=== PATIENT | female | born 1960 | race Caucasian/White ===

== ENCOUNTER → 2024-04-09 | Outpatient (CLI) | payer MEDICARE, SELFPAY ==
--- NOTE | 2024-04-09 16:06 | XR_ITS ---
Examination: Duplex scan of the lower extremity, unilateral right complete Date and time of exam: April 09, 2024 1620 hrs. Indications: Right calf and Achilles swelling and pain 10 days after falling, breast cancer diagnosis Technique: Duplex scan of the extremity veins using B-mode/grayscale imaging and Doppler spectral analysis and color flow Attention is directed to internal echogenicity, compression and augmentation involving these veins, color flow assessment, spectral analysis Findings: Major deep venous structures in the extremity demonstrate normal course and caliber. There is no evidence of deep vein thrombosis. Normal color flow and spectral analysis Impression: Negative for DVT.. As clinically warranted, MRI ankle follow-up would best assess for Achilles damage
== END | disposition home or self-care (01) ==
LOC: CDIM 16:04
PROVIDERS: PCP Internal Medicine; Referring Provider Internal Medicine; Visit Provider Internal Medicine
DX: M79.89 Other specified soft tissue disorders (principal)
CPT/HCPCS: 93971

== ENCOUNTER → 2024-04-26 | Outpatient (CLI) | payer OTHER, SELFPAY ==
[2024-04-26 15:02] LABS: Basophils # (Auto) 0.1 Thou/mm3 (0.0-0.2); Basophils % (Auto) 0 % (0-2.5); Eosinophils # (Auto) 0.1 Thou/mm3 (0.0-0.5); Eosinophils % (Auto) 0 % (0-10); Hematocrit 42.5 % (36.0-46.0); Hemoglobin 14.6 g/dL (12.0-16.0); Immature Granulocytes % (Auto) 0 % (0-0); Immature Granulocytes Auto 0.03 Thou/mm3 (0.00-0.00); Lymphocytes # (Auto) 2.1 Thou/mm3 (1.0-4.8); Lymphocytes % (Auto) 19 % (10-50); Mean Corpuscular HGB Conc 34.4 g/dl (31.0-37.0); Mean Corpuscular Volume 87 fL (80-100); Monocytes # (Auto) 0.9 Thou/mm3 (0.0-0.8); Monocytes % (Auto) 8 % (0-12); Neutrophils # (Auto) 8.2 Thou/mm3 (1.8-7.7); Neutrophils % (Auto) 72 % (37-80); Nucleated Red Blood Cell % 0 /100 WBC (0); Platelet Count 257 Thou/mm3 (140-440); RDW Standard Deviation 41.6 fL (36.4-46.3); Red Blood Count 4.86 Miln/mm3 (4.00-5.20); White Blood Count 11.3 Thou/mm3 (3.6-11.0)
[2024-04-27 17:25] LABS: Folate 21.68 ng/mL (>5.38); Vitamin B12 411 pg/mL (211-911)
[2024-04-28 03:15] LABS: Iron 125 mcg/dL (50-170); Percent Iron Saturation 34 % (20-55); Total Iron Binding Capacity 358 mcg/dL (250-425); Unsaturated Iron Binding 233 (225-295)
[2024-05-05 06:31] LABS: Zinc, Plasma* 85 mcg/dL (60-130)
== END | disposition home or self-care (01) ==
PROVIDERS: PCP Internal Medicine
DX: D50.9 Iron deficiency anemia, unspecified (principal); E44.0 Moderate protein-calorie malnutrition; R53.82 Chronic fatigue, unspecified
CPT/HCPCS: 36415; 82607; 82746; 83540; 83550; 84630; 85025

== ENCOUNTER → 2024-05-18 | Outpatient (CLI) | payer OTHER, SELFPAY ==
--- NOTE | 2024-05-18 16:46 | XR_ITS ---
Examination: Fingers, right hand third digit 3 views Technique: AP, oblique, lateral views right hand third digit 3 views. 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
--- NOTE | 2024-05-18 16:46 | XR_ITS ---
Examination: Hand, right 3 views Technique: Hand AP, oblique, lateral 3 views Date and time of exam: May 18, 2024 1710 hours INDICATIONS: Injury to the hand 2021 with weakness and pain FINDINGS: Healed fracture proximal phalanx fifth digit Severe osteopenia No acute fracture Osteoarthritis distal interphalangeal joints second through fifth digits most prominent third and second digits IMPRESSION: No acute fracture Osteoarthritis as above
[2024-05-18 17:49] LABS: Sed Rate (ESR) 6 mm/hr (0-30)
[2024-05-18 18:24] LABS: C-Reactive Protein < 0.4 mg/dL (0.0-0.9)
[2024-05-18 22:05] LABS: RA Screen Negative (Negative)
[2024-05-26 06:56] LABS: ANA Screen, IFA NEGATIVE (NEGATIVE); CCP Antibody (IgG)* <16 Units
== END | disposition home or self-care (01) ==
LOC: CDIM 15:57 → COPL 16:29
PROVIDERS: Referring Provider Internal Medicine; Visit Provider Radiology Diagnostic Radiology
DX: M19.041 Primary osteoarthritis, right hand (principal); M19.90 Unspecified osteoarthritis, unspecified site
CPT/HCPCS: 36415; 73130; 73140; 85652; 86038; 86140; 86200; 86430

== ENCOUNTER 2024-07-02 15:21 | Emergency (ER) | payer OTHER, SELFPAY ==
[2024-07-02 16:07] VITALS: BP 126/81; PULSE 68; RESP 18; TEMP 37.1; O2SAT 98; BMI 23.7
--- NOTE | 2024-07-02 16:10 | EKG_ITS ---
[facility] Test Date: 2024-07-02 Pat Name: RASHAUN VÁZQUEZ Department: Room: - Gender: Female Director Statistical Programming: : 1960 Requested By: Vitaly Foster Order Number: [id number] Reading MD: Vitaly Foster Measurements Intervals [place] Rate: 59 P: 58 MS: 189 QRS: 41 QRSD: 86 T: 70 QT: 398 QTc: 395 Interpretive Statements SINUS BRADYCARDIA Compared to ECG 10/30/2023 18:18:32 Sinus rhythm no longer present T-wave abnormality no longer present /store/S0/[id number]/ecg/[id number].pdf
--- NOTE | 2024-07-02 16:11 | EDRME_ITS ---
Rapid Medical Screening Exam [facility] Arrival date/time: 07/02/24 15:21 CC: Low blood pressure lightheadedness and dizziness HPI ongoing for the last week and a half, has had a history of similar episode last year and was told that it is orthostatic hypotension. Patient has a past medical history of aortic aneurysm and a leaky valve . Dr. Pagan is her therapy coordinator and Dr. Garcia is her primary care provider. Patient is awake alert oriented with no specific complaints while sitting down. Patient denies full syncope, or fall in the last week and a half. Chief Complaint: Syncope / Near Syncope Time Seen by Provider: 07/02/24 16:08 Vital signs: Vital Signs Temperature 98.7 F 07/02/24 16:07 Pulse Rate 68 07/02/24 16:07 Respiratory Rate 18 07/02/24 16:07 Blood Pressure 126/81 07/02/24 16:07 Pulse Oximetry (%) 98 07/02/24 16:07 Oxygen Delivery Method Room Air 07/02/24 16:07
[2024-07-02 16:55] LABS: Collection Type, Urine Clean Catch; Squamous Epithelial Cell,Urine 0 /hpf (0-5)
[2024-07-02 17:07] LABS: Bacteria,Urine Rare; Bilirubin,Urine Negative (Negative); Blood,Urine Negative (Negative); Clarity,Urine Clear (Clear/Hazy); Color,Urine Yellow (Lt Yel-Yel); Glucose, Urine Negative (Negative); Ketones,Urine Negative (Negative); Leukocyte Esterase,Urine Negative (Negative); Nitrite,Urine Negative (Negative); Protein,Urine Negative (Neg - Trace); RBC,Urine 1 /hpf (0-3); Specific Gravity,Urine 1.027 (1.001-1.035); Urobilinogen,Urine Negative mg/dL (0.0-1.0); WBC,Urine 1 /hpf (0-5)
[2024-07-02 17:19] LABS: Amphetamine/Methamp Scrn,U Negative (Negative); Barbiturate Screen,Urine Negative (Negative); Benzodiazepines Screen,Urine Positive (Negative); Benzoylecgonine Screen, Ur Negative (Negative); Fentanyl Screen,Urine Negative (Negative); Opiate Screen,Urine Positive (Negative); THC Screen,Urine Positive (Negative)
[2024-07-02 17:21] LABS: Basophils # (Auto) 0.1 Thou/mm3 (0.0-0.2); Basophils % (Auto) 1 % (0-2.5); Eosinophils # (Auto) 0.2 Thou/mm3 (0.0-0.5); Eosinophils % (Auto) 2 % (0-10); Hematocrit 40.3 % (36.0-46.0); Hemoglobin 13.8 g/dL (12.0-16.0); Immature Granulocytes % (Auto) 0 % (0-0); Immature Granulocytes Auto 0.03 Thou/mm3 (0.00-0.00); Lymphocytes # (Auto) 2.6 Thou/mm3 (1.0-4.8); Lymphocytes % (Auto) 27 % (10-50); Mean Corpuscular HGB Conc 34.2 g/dl (31.0-37.0); Mean Corpuscular Hemoglobin 29.9 pg (25.0-35.0); Mean Corpuscular Volume 87 fL (80-100); Monocytes # (Auto) 0.7 Thou/mm3 (0.0-0.8); Monocytes % (Auto) 8 % (0-12); Neutrophils # (Auto) 6.1 Thou/mm3 (1.8-7.7); Neutrophils % (Auto) 62 % (37-80); Nucleated Red Blood Cell % 0 /100 WBC (0); Platelet Count 285 Thou/mm3 (140-440); Red Blood Count 4.61 Miln/mm3 (4.00-5.20); White Blood Count 9.8 Thou/mm3 (3.6-11.0)
[2024-07-02 17:45] LABS: INR 0.9 (0.9-1.3); Partial Thromboplastin Time 24.7 Seconds (22.0-36.0); Prothrombin Time 10.3 Seconds (9.0-12.2)
[2024-07-02 17:54] LABS: B-Type Natriuretic Peptide 28 pg/mL (0-100)
[2024-07-02 17:58] LABS: Alanine Aminotransferase 13 U/L (10-49); Albumin, Serum 4.4 gm/dL (3.4-4.8); Alkaline Phosphatase 80 U/L (46-116); Anion Gap 9 (7-16); Aspartate Amino Transferase 17 U/L (0-34); BUN/Creatinine Ratio 14 Ratio (12-20); Bilirubin,Total 0.4 mg/dL (0.3-1.2); Blood Urea Nitrogen 13 mg/dL (9-23); Calcium 9.1 mg/dL (8.3-10.6); Calcium (Corrected) 9.1 mg/dL (8.5-10.1); Carbon Dioxide 27.4 mMol/L (20.0-31.0); Chloride 105 mMol/L (98-107); Creatinine (Component) 0.9 mg/dL (0.6-1.3); Estimated Creatinine Clearance 52.9 mL/min (>60); Globulin 2.2 gm/dL (2.3-3.5); Glucose 84 mg/dL (74-106); LDH (Lactate Dehydrogenase) 168 U/L (120-246); Magnesium 1.9 mg/dL (1.6-2.6); Osmolality,Calculated 280 (275-295); Sodium 141 mMol/L (136-145); Total Protein 6.6 gm/dL (5.7-8.2); Troponin I < 0.002 ng/mL (0.0-0.045); eGFR > 60 See Note
--- NOTE | 2024-07-02 19:20 | EDNOTE_ITS ---
ED Syncope RME/HPI General Chief Complaint: Syncope / Near Syncope Stated Complaint: LOW BP, NEAR SYNCOPE, DIZZINESS Time Seen by Provider: 07/02/24 16:08 Arrival date/time: 07/02/24 15:21 RME / HPI RME / HPI narrative: 63-year-old female patient with significant history of orthostatic hypotension came in with low blood pressure lightheadedness and dizziness HPI ongoing for the last week and a half, has had a history of similar episode last year and was told that it is orthostatic hypotension. Patient has a past medical history of aortic aneurysm and a leaky valve . Dr. Pagan is her funeral driver and Dr. Garcia is her primary care provider. Patient is awake alert oriented with no specific complaints while sitting down. Patient denies full syncope, or fall in the last week and a half. Related Data Home Medications ?Medication ?Instructions ?Recorded ?Confirmed alprazolam 1 mg tablet (Xanax) 1 mg PO BID PRN Anxiety #0 tabs 08/08/15 12/08/23 Held on 12/08/23. Instructions: Resume on 12/09/23. venlafaxine 150 mg 300 mg PO QDAY ##0 08/08/15 12/08/23 capsule,extended release 24 hr (Effexor XR) Held on 12/08/23. Instructions: Resume on 12/09/23. gabapentin 100 mg capsule 200 mg PO TID 03/24/1812/07 Held on 12/08/23. Instructions: Resume on 12/09/23. hydrocodone 7.5 mg-acetaminophen 1 tab PO BID PRN Pain 03/24/18 12/08/23 325 mg tablet Held on 12/08/23. Instructions: Resume on 12/09/23. levothyroxine 25 mcg tablet 25 mcg PO QDAY 03/24/18 dextroamphetamine-amphetamine 10 10 mg PO BID 10/29/22 12/08/23 mg tablet Held on 12/08/23. Instructions: Resume on 12/09/23. sucralfate 1 gram tablet 1 g PO QDAY 10/29/22 4 trazodone 150 mg tablet 150 mg PO HS 10/29/22 Held on 12/08/23. Instructions: Resume on 12/09/23. linaclotide 145 mcg capsule 145 mcg PO QDAY 12/08/23 0 12/08/23 (Linzess) tizanidine 4 mg tablet 4 mg PO QDAY 12/08/23 Held on 12/08/23. Instructions: Resume on 12/09/23. Previous Rx's ?Medication ?Instructions ?Recorded pantoprazole 40 mg tablet,delayed 40 mg PO QDAY #30 ta bs 10/30/23 release (Protonix) Allergies Allergy/AdvReac Type Severity Reaction Status Date / Time morphine Allergy Intermediate Rash Verified 12/08/23 13:34 Review of Systems Review of Systems Narrative Review of Systems: Review of system reviewed and within normal limits except mentioned in HPI ED Exam Narrative Physical exam: VITAL SIGNS: Reviewed. GENERAL APPEARANCE: Alert and interactive, follows commands, no acute distress, HEAD AND FACE: Non-traumatic. ENT: PERRL, pink conjunctivitis, eyelid no trauma, Mucous membrane moist. NECK: Supple, nontender, no nuchal rigidity. CHEST: No tenderness, no crepitus, no paradoxical movement, no retractions. LUNGS: Clear, well ventilated, symmetric, no rales, no wheezing, no ronchi, no stridor, good breath sounds bilaterally. HEART: Regular rate, regular rhythm, no murmur, no gallops. ABDOMEN: Soft, positive bowel sounds, nondistended, no guarding, nontender, no rebound, no masses, RECTAL: Deferred. GENITAL: Deferred. NEUROLOGICAL: Gross motor function intact sensory function intact, Appropriate for age. MUSCULOSKELETAL: low back nontender, full range of motion. EXTREMITIES: Nontender, full range of motion. SKIN: Color pink, dry, no rash, no lacerations, no abrasions, no contusions. LYMPHATICS: Deferred. Course Quality Measures none Orders Category Date Time Status EKG (ED ONLY) *Do not use* NOW Care 07/02/24 16:10 Completed Orthostatic Vitals NOW Care 07/02/24 16:10 Active EKG (ED Only) Stat Exams 07/02/24 16:10 Draft B-Type Natriuretic Peptide Stat Lab 07/02/24 16:23 Completed CBC Stat Lab 07/02/24 16:23 Completed Comprehensive Metabolic Panel Stat Lab 07/02/24 16:23 Completed Drug Screen,Urine Stat Lab 07/02/24 16:49 Completed LDH (Lactate Dehydrogenase) Stat Lab 07/02/24 16:23 Completed Magnesium Stat Lab 07/02/24 16:23 Completed Partial Thromboplastin Time Stat Lab 07/02/24 16:23 Completed Prothrombin Time with INR Stat Lab 07/02/24 16:23 Completed Troponin I Stat Lab 07/02/24 16:23 Completed Urinalysis Stat Lab 07/02/24 16:49 Completed Vital Signs Vital signs: Vital Signs Temperature 98.7 F 07/02/24 16:07 Pulse Rate 68 07/02/24 16:07 Respiratory Rate 18 07/02/24 16:07 Blood Pressure 126/81 07/02/24 16:07 Pulse Oximetry (%) 98 07/02/24 16:07 Oxygen Delivery Method Room Air 07/02/24 16:07 Syncope [facility] Narrative [facility] Narrative:: 63-year-old female patient with significant history of orthostatic hypotension came in with low blood pressure lightheadedness and dizziness HPI ongoing for the last week and a half, has had a history of similar episode last year and was told that it is orthostatic hypotension. Patient has a past medical history of aortic aneurysm and a leaky valve . Dr. Pagan is her funeral driver and Dr. Garcia is her primary care provider. Patient is awake alert oriented with no specific complaints while sitting down. Patient denies full syncope, or fall in the last week and a half. Patient's workup all came back unremarkable including normal troponin. Urinalysis no UTI. EKG showed sinus bradycardia, ventricular rate of 59 bpm, no ST segment elevation depression noted. Patient tested positive for marijuana, benzo and opioids. Prior to discharge, patient's blood pressure was noted to be 153/97, heart rate of 88. Patient is not having any symptoms. Prior to discharge. Patient was advised to follow-up with Dr. Pagan patient's funeral driver for further management. Patient data External records reviewed:: None Clinical information provided by:: patient Social determinants that could affect healthcare access:: none Patient has the following chronic illnesses:: Hypertension How is presenting disease/condition affected by chronic disease/condition?: exacerbated by Evaluation data The following diagnostics were reviewed and interpreted by me:: lab results, radiology exam(s) and EKG tracing(s) Lab and/or radiology exams considered but not ordered:: None Interpretation Summary: See results in MDM Medications / Prescriptions Medications or Prescriptions considered but not ordered:: None Medication administrations:: None Consultations Consultation(s) initiated? (list below): No Diagnosis Syncope Differential Diagnosis: syncope due to orthostatic hypotension and dehydration Most likely diagnosis given after review of the tests above:: Labile hypertension Admission Indicated Admission indicated?: not indicated Admission Request Was there a request for admission?: No Disposition Plan Disposition Plan: Discharge Discharge Attestation Discharge Attestation: The patient was given an opportunity to ask questions and understood the discharge instructions. Discharge instructions specifically effects, indications for sooner follow up or return to the emergency department, and the expected course of current diagnosis. Patient condition: Stable Discharge Plan Plan Patient Disposition: HOME (Self Care) Disposition Comment: Stable Prescriptions/Referrals Prescriptions/Med Rec: No Action alprazolam [Xanax] 1 MG tablet 1 mg PO BID PRN (Reason: Anxiety) Qty: 0 venlafaxine [Effexor XR] 150 MG capsule,extended release 24hr 300 mg PO QDAY Qty: 0 hydrocodone-acetaminophen 7.5-325 mg Tablet 1 tab PO BID PRN (Reason: Pain) gabapentin 100 mg Capsule 200 mg PO TID levothyroxine 25 mcg Tablet 25 mcg PO QDAY sucralfate 1 gram tablet 1 g PO QDAY trazodone 150 mg tablet 150 mg PO HS dextroamphetamine-amphetamine 10 mg tablet 10 mg PO BID pantoprazole [Protonix] 40 mg tablet,delayed release (DR/EC) 40 mg PO QDAY Qty: 30 0RF tizanidine 4 mg tablet 4 mg PO QDAY Linzess 145 mcg capsule 145 mcg PO QDAY Referrals: Everett Gilliam MD [Primary Care Provider] - In 1 week Problem List Clinical Impression: Labile hypertension Patient/Caregiver Discharge Instructions Discharge Activity: activity as tolerated Education Materials: ED Symptoms With Uncertain Cause Additional Instructions: Thank you for the opportunity for serving you today. You are stable for discharged . You are advised to: Follow-up with your PCP in 1 to 2 days Return to ED for worsening of symptoms Increase oral fluids Print Language: Turkish Stand Alone Forms: Tanisha Award Info., Patient Portal Info Letter PAULA/FRANSICO Supervising Physician PA/FRANSICO Supervising Physician: MD Jeffry
[2024-07-02 19:44] VITALS: BP 153/97; PULSE 88; RESP 18; TEMP 36.6; O2SAT 99
== END 2024-07-02 20:24 | disposition home or self-care (01) ==
PROVIDERS: Registered Nurse General Practice; Emergency Provider Emergency Medicine; PCP Obstetrics & Gynecology
DX: I10 Essential (primary) hypertension (principal); R00.1 Bradycardia, unspecified
CPT/HCPCS: 36415; 80053; 80307; 81001; 83615; 83735; 83880; 84484; 85025; 85610; 85730; 93005; 99283

== ENCOUNTER → 2024-08-18 | Outpatient (CLI) | payer OTHER, SELFPAY ==
[2024-08-18 10:54] LABS: Basophils # (Auto) 0.1 Thou/mm3 (0.0-0.2); Basophils % (Auto) 1 % (0-2.5); Eosinophils # (Auto) 0.2 Thou/mm3 (0.0-0.5); Eosinophils % (Auto) 2 % (0-10); Hematocrit 42.6 % (36.0-46.0); Hemoglobin 14.4 g/dL (12.0-16.0); Immature Granulocytes % (Auto) 0 % (0-0); Immature Granulocytes Auto 0.03 Thou/mm3 (0.00-0.00); Lymphocytes # (Auto) 2.3 Thou/mm3 (1.0-4.8); Lymphocytes % (Auto) 24 % (10-50); Mean Corpuscular HGB Conc 33.8 g/dl (31.0-37.0); Mean Corpuscular Hemoglobin 30.4 pg (25.0-35.0); Mean Corpuscular Volume 90 fL (80-100); Monocytes # (Auto) 0.8 Thou/mm3 (0.0-0.8); Monocytes % (Auto) 8 % (0-12); Neutrophils # (Auto) 6.3 Thou/mm3 (1.8-7.7); Neutrophils % (Auto) 65 % (37-80); Nucleated Red Blood Cell % 0 /100 WBC (0); Platelet Count 276 Thou/mm3 (140-440); RDW Standard Deviation 45.6 fL (36.4-46.3); Red Blood Count 4.73 Miln/mm3 (4.00-5.20); White Blood Count 9.6 Thou/mm3 (3.6-11.0)
[2024-08-18 11:02] LABS: Alanine Aminotransferase 13 U/L (10-49); Albumin, Serum 4.5 gm/dL (3.4-4.8); Alkaline Phosphatase 77 U/L (46-116); Anion Gap 8 (7-16); Aspartate Amino Transferase 18 U/L (0-34); BUN/Creatinine Ratio 22 Ratio (12-20); Bilirubin,Direct 0.2 mg/dL (0.0-0.3); Bilirubin,Total 0.6 mg/dL (0.3-1.2); Blood Urea Nitrogen 20 mg/dL (9-23); Calcium 9.5 mg/dL (8.3-10.6); Carbon Dioxide 26.6 mMol/L (20.0-31.0); Cardiac Risk Estimate 3.3 RATIO (3.7-5.6); Chloride 106 mMol/L (98-107); Cholesterol 164 mg/dL (132-200); Creatinine (Component) 0.9 mg/dL (0.6-1.3); Free T4 (Free Thyroxine) 1.42 ng/dL (0.89-1.76); Glucose 112 mg/dL (74-106); HDL Cholesterol 50 mg/dL (40-60); LDL Cholesterol,Calculated 82 mg/dL (0-130); Osmolality,Calculated 284 (275-295); Potassium 4.4 mMol/L (3.4-5.1); Sodium 141 mMol/L (136-145); Total Protein 6.9 gm/dL (5.7-8.2); Triglycerides 160 mg/dL (30-150); eGFR > 60 See Note
== END | disposition home or self-care (01) ==
PROVIDERS: PCP Internal Medicine; Referring Provider Internal Medicine Cardiovascular Disease; Visit Provider Internal Medicine Cardiovascular Disease
DX: I10 Essential (primary) hypertension (principal); E78.5 Hyperlipidemia, unspecified; I35.1 Nonrheumatic aortic (valve) insufficiency
CPT/HCPCS: 36415; 80048; 80061; 80076; 84439; 84443; 85025

== ENCOUNTER → 2024-08-23 | Outpatient (CLI) | payer OTHER, SELFPAY ==
--- NOTE | 2024-08-23 14:30 | XR_ITS ---
Examination: CT chest, without intravenous contrast. Sagittal and coronal 2-D reconstructions. Exam date and time: August 23, 2024 1545 hours INDICATIONS: Bilateral breast carcinoma history, CT chest October 30, 2023 bilateral pulmonary nodules CTDI:vol (mGy) 7.80 DLP: (mGycm) 300 Technique: Multiple 3.0 mm axial sections of the chest to been obtained. Bone and lung density settings are obtained. Sagittal and coronal 2-D reconstructions have been obtained. Low dose protocols were performed. One or more of the following dose reduction techniques were used; automated exposure control, adjustment of the mA and/or KV according to patient size, use of iterative reconstruction technique. Findings: No focal liver or splenic lesions No paratracheal tracheobronchial or bronchopulmonary adenopathy New 4 mm pulmonary nodule right lower lobe image 297 No pneumonia or pulmonary edema or pleural disease No focal liver or splenic lesions No definite gallstones No hydronephrosis Prominent osteopenia IMPRESSION: New 4 mm pulmonary nodule right lower lobe, recommend continued 6 month follow-up CT chest without contrast
== END | disposition home or self-care (01) ==
LOC: CCTX 14:01
PROVIDERS: PCP Internal Medicine; Referring Provider Internal Medicine; Visit Provider Internal Medicine
DX: R91.1 Solitary pulmonary nodule (principal)
CPT/HCPCS: 71250

== ENCOUNTER → 2024-10-12 | Outpatient (CLI) | payer OTHER, SELFPAY | END | disposition home or self-care (01) | PROVIDERS: PCP Internal Medicine; Referring Provider Internal Medicine; Visit Provider Student in an Organized Health Care Education/Training Program | DX: T21.31XA Burn of third degree of chest wall, initial encounter (principal); L98.429 Non-pressure chronic ulcer of back with unspecified severity; I10 Essential (primary) hypertension; I71.20 Thoracic aortic aneurysm, without rupture, unspecified | CPT/HCPCS: 97597; 99212; A9270; G0463 ==

== ENCOUNTER → 2024-10-19 | Outpatient (CLI) | payer OTHER, SELFPAY | END | disposition home or self-care (01) | PROVIDERS: PCP Internal Medicine; Referring Provider Internal Medicine; Visit Provider Student in an Organized Health Care Education/Training Program | DX: T21.31XA Burn of third degree of chest wall, initial encounter (principal); L98.429 Non-pressure chronic ulcer of back with unspecified severity; I10 Essential (primary) hypertension; I71.20 Thoracic aortic aneurysm, without rupture, unspecified | CPT/HCPCS: 17250; A9270 ==